=== PATIENT | female | born 2000 | race Caucasian/White ===

== ENCOUNTER 2024-03-24 22:38 | Emergency (ER) | payer MEDICAID, SELFPAY ==
[2024-03-24 22:39] VITALS: BP 133/80; PULSE 116; RESP 18; TEMP 36.2; O2SAT 98; BMI 31.8
--- NOTE | 2024-03-24 23:14 | ED.RN ---
Patient refusing IV and bloodwork.
--- NOTE | 2024-03-24 23:25 | ED.RN ---
Patient is declining all lab work but would still like to be seen. Dr. Munoz notified.
--- NOTE | 2024-03-24 23:55 | US_ITS ---
INDICATION: r/o ectopic EXAMINATION: Ultrasound US OB Transvaginal TECHNIQUE: Transvaginal pelvic ultrasound was performed. Grayscale, spectral waveform, and color flow Doppler evaluation of the adnexa. COMPARISON: None. LMP: [02/07/2024 correlating with 6 weeks 5 days gestation estimated delivery date 11/13/2024 Beta-hCG: Unknown FINDINGS: UTERUS: Retroverted uterus 8.7 x 6.1 x 6.5 cm with unremarkable myometrium RIGHT OVARY: 2.6 x 1.5 x 1.8 cm. Normal parenchymal appearance. Limited Doppler evaluation with demonstrated internal vascular flow. LEFT OVARY: 3.4 x 1.6 x 2.3 cm. 2.1 cm complex luteal cyst.. Preserved ovarian Doppler vascular flow. FREE FLUID: None. INTRAUTERINE GESTATIONAL SAC(s) (size/shape): Single fundal gestational sac with normal shape. YOLK SAC: Single normal yolk sac POLE: Single pole with crown-rump length 0.46 centimeters correlating with 6 weeks 3 days gestation and estimated delivery date November 15, 2024 HEART MOTION: 99 bpm. PLACENTA: Not visualized due to age. SUBCHORIONIC HEMORRHAGE: None. AMNIOTIC FLUID: Qualitatively normal. US/Transvaginal w/Preg US IMPRESSION: Single live intrauterine with normal heart rate. Estimated gestational age is concordant with provided dating. Normal ovaries with left luteal cyst. Electronically Signed: Ravindra Nunez MD at 1:22 EDT ,
--- NOTE | 2024-03-25 00:13 | ED.VIS.FEGU ---
HPI HPI - Female History of Present Illness Chief Complaint: Vag Bld, Preg Informant: patient Pain Pain: Positive for Pelvic Pain (Off-and-on for days or weeks) Timing: Intermittent Quality: Positive for Cramping Location: - (Throughout pelvis nonlateralizing) Current Severity: Mild Bleeding Issue: Positive for Vaginal bleeding Onset: Today Context: Gradual Onset Current Severity: Mild Maximum Severity: Heavy Associated Symptoms Last known menstrual period: 02/07/24 Test: Positive Narrative Narrative: Patient states she is and was having some pelvic pain off-and-on, she had ultrasounds done hormone levels at her OB in [place] nothing has been seen, today she had a lot of bleeding. She feels okay right now. She has Rh- blood and already had a dose of RhoGAM within the last week or 2. PFSH PFSH Medical History no medical history no medical history Home Medications ?Medication ?Instructions ?Recorded ?Last Taken ?Type NK 03/24/24 Unknown History Allergy/AdvReac Type Severity Reaction Status Date / Time amphetamine (From Adderall) AdvReac Nausea/Vom/ Verified 03/24/24 22:40 Diarrhea dextroamphetamine (From AdvReac Nausea/Vom/ Verified 03/24/24 22:40 Adderall) Diarrhea Surgical History no surgical history Social History Smoking Status: Never smoker ROS ROS ED Constitutional Constitutional ED: Denies chills or fever(s) Eyes Eyes: Denies change in vision or diplopia ENT ENT ED: Denies rhinorrhea or sore throat Cardiovascular Cardiovascular: Denies chest pain, palpitations or syncope Respiratory/Chest Respiratory/Chest: Denies cough or dyspnea Gastrointestinal Gastrointestinal: Reports abdominal pain; Denies diarrhea, nausea or vomiting Genitourinary Genitourinary ED: Reports vaginal bleeding; Denies dysuria or hematuria Psychiatric Psychiatric: Denies anxiety or suicidal thoughts EXAM Physical Exam Const Vital Signs: 03/24/24 22:39 03/25/24 00:39 Temperature 97.2 F L Temperature Source Temporal Pulse Rate 116 H 89 Respiratory Rate 18 18 Blood Pressure 133/80 H 96/58 L Blood Pressure Mean 97 70 Pulse Ox 98 99 Positive well nourished and well developed General Appearance ED: well developed and NAD HEENT Reports moist mucous membranes normocephalic and atraumatic Eyes PERRL and EOMs intact bilaterally Neck full ROM and supple Resp normal respiratory effort Cardio regular rate, regular rhythm and no murmurs GI non-distended GI Narrative: Mild diffuse pelvic tenderness without guarding or rebound. Auscultation: normoactive bowel sounds Palpation: soft Speculum Exam - Vagina: vaginal bleeding Neuro oriented x3, CN's II-XII intact bilaterally and no sensory deficits noted Sensorium / Orientation: awake and alert Motor Exam: strength 5/5 throughout Skin no rashes or lesions noted and no wounds MDM MDM MDM Narrative Medical decision making narrative: Patient recently had RhoGAM does not need another dose now. She is stable clinically and hemodynamically. She states she is refusing blood work. I did a bedside ultrasound, I see no intrauterine or double decidual sign, and as I discussed with her the differential includes ectopic , early intrauterine that is too small to see, or completed miscarriage. She would need a quantitative hCG now and another one in 48 hours to differentiate these. She was amenable to nurses trying again. This was done and noted, quantitative hCG 22,000 460, I do not have records of what her other ones were, but the ultrasound, images are reviewed as well as the report which I agree with, is consistent with a 6-week 3-day gestation with due date 11/15/2024 with heart tones here noted as 99. Unknown if this is accurate or not, but appears to be a single live intrauterine at least this rules out an ectopic . Patient reassured, she is clinically and hemodynamically stable and doing well and stable for discharge to follow-up with OB routinely. Lab Data Attestation: I reviewed the patient's lab results. Labs: Laboratory Results - last 24 hr 03/24/24 23:39 HCG, Quant [id number] H Discharge Plan Triage Chief Complaint: Vag Bld, Preg ED Provider: Dakota Munoz Dx/Rx/DC Orders Clinical Impression: , threatened, antepartum Instructions: Miscarriage Threatened Prescriptions: No Action NK Primary Care Provider: David Austin Referrals: David Austin, [Primary Care Provider] - (Follow-up with your OB in the next 1 or 2 weeks, soon as you are able) Activity Restrictions/Additional Instructions: You have an intrauterine that is measuring 6 weeks and 3 days right now for an estimated due date of 11/15/2024. This may change and is just an estimate right now. You do not need to follow-up for repeat hormone level since we were able to verify that you have an intrauterine and not an ectopic which is good. Follow-up when you are able. Print Language: Citizen Of [place] Disposition Disposition: Home, Self Care
[2024-03-25 00:39] VITALS: BP 96/58; PULSE 89; RESP 18; O2SAT 99
[2024-03-25 00:49] LABS: hCG Titer Quant., Serum 22460 mIU/mL (1-3)
[2024-03-25 02:00] VITALS: BP 118/61; PULSE 71; RESP 16; RESP 18; TEMP 36.2; O2SAT 99
== END 2024-03-25 02:05 | disposition home or self-care (01) ==
PROVIDERS: Emergency Provider Emergency Medicine; PCP Family Medicine; Visit Provider Emergency Medicine
DX: O20.0 Threatened abortion (principal); R10.2 Pelvic and perineal pain; Z3A.01 Less than 8 weeks gestation of pregnancy
CPT/HCPCS: 76817; 84702; 99282; A4216

== ENCOUNTER 2024-03-25 19:41 | Emergency (ER) | payer MEDICAID, SELFPAY ==
[2024-03-25 19:42] VITALS: BP 163/143; PULSE 84; RESP 18; TEMP 36.1; O2SAT 100; BMI 33.4
--- NOTE | 2024-03-25 20:33 | EDS_ITS ---
HPI HPI - Female History of Present Illness Chief Complaint: Vag Bld, Preg Informant: patient Pain Pain: Positive for Pelvic Pain Onset: Today and Yesterday Context: Gradual Onset Timing: Intermittent Quality: Positive for Cramping Current Severity: Mild Maximum Severity: Mild Bleeding Issue: Positive for Vaginal bleeding; Negative for Passing clots or Passing tissue Onset: Today and Yesterday Timing: Intermittent Current Severity: Spotting Maximum Severity: Spotting Associated Symptoms Associated Symptoms: Negative for Dysuria or Frequency Test: Positive Sexually: Positive for Active P: 2 Ab: 0 Narrative Narrative: 24-year-old female G3, P2 Ab0. Currently is almost 7 weeks . She knows her blood type is A-. She sees an [facility] at [place] named Dr. Monge. Patient did have vaginal bleeding and mild cramping yesterday. The cramping and bleeding is actually slowed today. She was seen in this emergency department yesterday. She had an ultrasound showing single live IUP. No ectopic. She had a quant of 22,000, 460. She has had no fever. She has already received RhoGAM a full dose in the last 2 weeks. Prior similar symptoms: Yes Recent Illness/Hospitalization: No PFSH PFSH Medical History TIA (transient ischemic attack) Medical History no medical history Home Medications ?Medication ?Instructions ?Recorded ?Last Taken ?Type NK 03/24/24 Unknown History Allergy/AdvReac Type Severity Reaction Status Date / Time amphetamine (From Adderall) AdvReac Nausea/Vom/ Verified 03/25/24 19:44 Diarrhea dextroamphetamine (From AdvReac Nausea/Vom/ Verified 03/25/24 19:44 Adderall) Diarrhea Social History Smoking Status: Never smoker ROS ROS ED ROS Narrative Vaginal bleeding cramping. Review of Systems ROS Unobtainable: Denies due to encephalopathy Constitutional Constitutional ED: Denies anorexia Eyes Eyes: Denies burning ENT ENT ED: Denies disequillibrium Cardiovascular Cardiovascular: Denies cyanosis Respiratory/Chest Respiratory/Chest: Denies cough Gastrointestinal Gastrointestinal: Reports none Genitourinary Genitourinary ED: Reports none Musculoskeletal Musculoskeletal: Reports none Integumentary Reports none Neurologic Neurologic: Reports none Psychiatric Psychiatric: Reports none Endocrine Endocrinology: Reports none Hematologic/Lymphatic Hematologic/Lymphatic: Reports none Allergic/Immunologic Allergic/Immunologic ED: Reports none EXAM Physical Exam Narrative Exam Narrative: Well-appearing 24-year-old female. Vital signs stable initial blood pressure 163/143. There is probably an error. Will be rechecked prior to discharge. HEENT exam unremarkable. Lungs clear. Heart regular rhythm rate about 80. Abdomen soft, nontender, nondistended normal bowel sounds no peritoneal signs. Moving all 4 extremities. Nontender no edema. She is awake and alert. No focal motor deficits. Benign exam. Const Vital Signs: 03/25/24 19:42 Temperature 96.9 F L Temperature Source Temporal Pulse Rate 84 Respiratory Rate 18 Blood Pressure 163/143 H Blood Pressure Mean 149 Pulse Ox 100 Oxygen Delivery Method Room Air Positive well nourished, well developed, no apparent distress, average body habitus, no limitations and healthy appearing; Negative for obese, cachectic, contractures or unkempt General Appearance ED: cooperative, comfortable, well kempt and well developed; Negative for unkempt, cachectic or contractures Nutritional Appearance: Negative for cachectic or obese HEENT Reports normocephalic and head/scalp atraumatic normocephalic Face and Sinus: normal facial exam Nose: external nose normal Eyes PERRL, EOMs intact bilaterally, conjunctivae normal and no scleral icterus General Eye ED: Yes normal appearance of both eyes Neck full ROM, No nuchal rigidity, no lymphadenopathy, supple, no meningeal signs and no JVD Lymph Lymphatic: no lymphadenopathy noted and no lymphedema noted Chest Wall inspection of chest normal Resp normal respiratory effort, normal air movement, no retractions, no use of accessory muscles and clear to auscultation bilaterally Cardio regular rate, regular rhythm, S1 normal heart sound, S2 normal heart sound, no murmurs, no rub, no gallops, no clicks and no JVD Rate: regular rate Rhythm: regular rhythm GI normal to inspection, nondistended, normoactive bowel sounds, soft to palpation, non-tender, non-distended, no masses and no bruits Palpation: soft; Negative for firm, tender, guarding or rebound tenderness present no CVA tenderness Back/Spine no CVA tenderness Extremity normal to inspection, no joint enlargement, no clubbing, cyanosis or edema, no calf tenderness and no pedal edema General Extremety ED: Yes normal exam except as noted General Extremity: normal exam except as noted Neuro oriented x3, CN's II-XII intact bilaterally, moves all extremities and no focal motor deficits Motor Exam: strength 5/5 throughout Psych mental status grossly normal, thought process normal, cooperative, affect normal and speech normal Appearance: grossly normal; Negative for unkempt Attitude: calm, engaged, No paranoid, No withdrawn and No bizarre Activity / Motor Behavior: appropriate eye contact Speech: normal speech Mood & Affect: euthymic mood Thought Process: normal thought process Thought Content: normal thought content Skin no rashes or lesions noted, no wounds, skin turgor normal, no jaundice, no petec hiae and no mottling General Skin Exam: no breakdown Lesions: no lesions Rashes: no rashes Trauma: no lacerations or abrasions MDM MDM MDM Narrative Medical decision making narrative: 24-year-old female G3, P2 Ab0. Approximately 6 to 7 weeks . Was seen here last night. A quant of 22,000. Her blood type is A- which she is already received RhoGAM in the last 2 weeks. Ultrasound last night showed a single live IUP. She was diagnosed with threatened miscarriage. Her bleeding and cramping is actually much improved. She and I went over the test that she had last night and she does not need them repeated tonight. I did offer her a repeat ultrasound but explained to her that it may not show any different from yesterday. She is comfortable with follow-up with her [facility] and get an ultrasound done there. We went over threatened miscarriage versus vaginal bleeding in early . She will use Tylenol for pain. No intercourse. No lifting. [facility] follow-up. History & Record Review Discussion w/independent historian: Patient Additional record(s) reviewed:: Prior inpatient record, Prior outpatient record, Prior ED visit and Prior labs Discharge Plan Triage Chief Complaint: Vag Bld, Preg ED Provider: Alan Leon Dx/Rx/DC Orders Clinical Impression: Miscarriage, threatened, early Instructions: Miscarriage Threatened Prescriptions: No Action NK Primary Care Provider: David Austin Referrals: David Austin, [Primary Care Provider] - As soon as possible Activity Restrictions/Additional Instructions: Plenty of fluids and rest. Tylenol for any pain. Call and follow-up with your OB tomorrow deceiving get you in Saturday or no later than Saturday. No heavy lifting. No intercourse. Return if fever, increasing pain or heavy bleeding with large clots. Currently this is a threatened miscarriage. You may go on to have a totally normal . The concern would be that you could develop completed miscarriage and lose the . Print Language: Malaysian Disposition Disposition: Home, Self Care
[2024-03-25 20:50] VITALS: BP 129/77; PULSE 78; RESP 16; TEMP 36.8; O2SAT 100
== END 2024-03-25 20:51 | disposition home or self-care (01) ==
LOC: ED 20:38
PROVIDERS: Emergency Provider Emergency Medicine; PCP Family Medicine; Visit Provider Emergency Medicine
DX: O20.0 Threatened abortion (principal); O26.891 Other specified pregnancy related conditions, first trimester; R10.2 Pelvic and perineal pain; Z3A.01 Less than 8 weeks gestation of pregnancy
CPT/HCPCS: 99282

== ENCOUNTER 2024-08-26 22:21 | Emergency (ER) | payer MEDICAID, SELFPAY ==
[2024-08-26 22:22] VITALS: BP 121/73; PULSE 101; RESP 20; TEMP 36.2; O2SAT 100; BMI 34.2
--- NOTE | 2024-08-26 22:33 | EX.ED.DYSGE1 ---
HPI History of Present Illness Chief Complaint: Sore Throat [facility] Medical History TIA (transient ischemic attack) Medical History no medical history Home Medications ?Medication ?Instructions ?Recorded ?Last Taken ?Type amoxicillin 875 mg-potassium 1 tab PO BID #14 tabs 08/26/24 Unknown Rx clavulanate 125 mg tablet Allergy/AdvReac Type Severity Reaction Status Date / Time amphetamine (From Adderall) AdvReac Nausea/Vom/ Verified 08/26/24 22:21 Diarrhea dextroamphetamine (From AdvReac Nausea/Vom/ Verified 08/26/24 22:21 Adderall) Diarrhea Social History Smoking Status: Never smoker EXAM Physical Exam Const Vital Signs: 08/26/24 22:22 Temperature 97.1 F L Temperature Source Temporal Pulse Rate 101 H Respiratory Rate 20 H Blood Pressure 121/73 H Blood Pressure Mean 89 Pulse Ox 100 Oxygen Delivery Method Room Air [facility] Narrative Medical decision making narrative: HISTORY OF PRESENT ILLNESS: Patient presents with sore throat. Notes 2 days of symptoms. No severe throat pain. Notes difficulty swallowing. Denies difficulty opening her mouth, trismus drooling fever. No sick contacts. REVIEW OF SYSTEMS: Pertinent positives: Sore throat Pertinent negatives: Drooling, neck stiffness, shortness of breath, chest pain, vomiting PHYSICAL EXAM: Nursing triage notes reviewed, Vital signs reviewed Constitutional: please see mdm HENT: MMM, there is some tonsillar edema, uvula midline, there are tonsillar exudates, no submandibular edema or induration, bilateral TMs pearly [place]mond with no hyperemia or middle ear effusion, no mastoid tenderness, no trismus, Eyes: Pupils equal round and reactive to light, Extraocular muscles intact Neck: No stridor, no JVD, full neck ROM Lungs: Clear to auscultation, No wheezing or rales. No increased work of breathing, no conversational dyspnea, no accessory muscle use, no nasal flaring. No respiratory distress noted. The patient speaking full sentences. Heart: Regular rate and rhythm, No murmurs, No rubs and No gallops, 2+ distal pulses (radial, femoral, posterior tibial) in all extremities Skin: No rash or lesions noted MEDICAL DECISION MAKING: Chief Complaint: Sore throat External records reviewed: None Factors affecting care: None Social determinants of health: None History obtained from others: None Consults: None ALL IMAGES (IF OBTAINED) HAVE BEEN PERSONALLY REVIEWED AND INTERPRETED BY MYSELF. MDM Narrative: The patient was hemodynamically stable, afebrile, nontoxic-appearing. She is speaking in full sentences. There is no signs of airway compromise at this time. I considered the following differential diagnosis: Bacterial versus viral pharyngitis, RPA, [employer], Lemierre's syndrome, Robi's angina. There is no clinical evidence of RPA, [employer], Lemierre's syndrome along with and at this time. Patient will be given prophylactic antibiotics. Also gave anti-inflammatories and for Toradol and Decadron for symptomatic relief. The patient was given strict return precautions and follow-up instructions. The patient and/or family, caregivers express understanding. The patient and/or family, caregivers agrees with the plan. Total critical care time today provided was at least 0 minutes. This excludes separately billable procedures. Critical care time if documented is secondary to the patient having high probability of clinically significant/life threatening deterioration in the patient's condition which required my urgent intervention. Shared decision making: I will have a discussion with the patient and or visitors regarding risk/benefits of further testing or admission. They will be made aware of of the risk/benefits inherent in this decision they will be given the opportunity to voice understanding. Impression: 1. Bacterial pharyngitis 2. Acute sore throat Disposition: Discharge home This note was generated with [employer] dictation software. It may contain incorrect words, spelling, and punctuation that were not noted in review of the chart prior to signing. Discharge Plan Triage Chief Complaint: Sore Throat ED Provider: Alex Neil Dx/Rx/DC Orders Instructions: Strep Throat Prescriptions: New amoxicillin-pot clavulanate 875-125 mg tablet 1 tab PO BID Qty: 14 0RF Primary Care Provider: David Austin Referrals: David Austin DO [Primary Care Provider] - Activity Restrictions/Additional Instructions: Thank you for trusting us with your care today! Your clinical exam is consistent with bacterial pharyngitis (bacterial infection of your throat) Please take Tylenol (2 pills, 650 mg), ibuprofen (2 pills, 400 mg) every 6 hours as needed for pain and fever control. Please take antibiotics until course complete. Please return to the emergency department if your symptoms change or worsen. Specifically develop swelling underneath your jaw, drooling, difficulty opening your jaw, severe throat tightness, loud in-store noises that we call stridor. Please follow with your primary care physician for further outpatient evaluation and management. Print Language: Turkmen Disposition Disposition: Home, Self Care Discharge Date/Time: 08/26/24 23:36
[2024-08-26] MEDS: dexAMETHasone 10 MG/ML Vial 6 MG IM (23:00)
[2024-08-26] MEDS: Amox/Clavulanate 875 MG Tablet PO (23:00)
[2024-08-26] MEDS: Ketorolac 15 MG/ML Vial IV (23:00)
== END 2024-08-26 23:36 | disposition home or self-care (01) ==
PROVIDERS: Emergency Provider Emergency Medicine; PCP Family Medicine; Visit Provider Emergency Medicine
DX: J02.9 Acute pharyngitis, unspecified (principal)
CPT/HCPCS: 96372; 96374; 99282

== ENCOUNTER 2025-01-19 09:38 | Emergency (ER) | payer MEDICAID, SELFPAY ==
[2025-01-19 09:38] VITALS: BP 134/93; BP 141/76; PULSE 110; PULSE 114; RESP 24; RESP 26; TEMP 37.2; O2SAT 97; O2SAT 98; BMI 38.0
--- NOTE | 2025-01-19 09:45 | EDS_ITS ---
HPI History of Present Illness Chief Complaint: Sore Throat [facility] Medical History TIA (transient ischemic attack) Medical History no medical history Home Medications ?Medication ?Instructions ?Recorded ?Last Taken ?Type amoxicillin 875 mg-potassium 1 tab PO BID #14 tabs Unknown Rx clavulanate 125 mg tablet Allergy/AdvReac Type Severity Reaction Status Date / Time amphetamine (From Adderall) AdvReac Nausea/Vom/ Verified 08/26/24 22:21 Diarrhea dextroamphetamine (From AdvReac Nausea/Vom/ Verified 08/26/24 22:21 Adderall) Diarrhea Social History Smoking Status: Never smoker EXAM Physical Exam Const Vital Signs: 01/19/25 09:38 01/19/25 09:38 Temperature 99 F Temperature Source Temporal Pulse Rate 110 H 114 H Respiratory Rate 24 H 26 H Blood Pressure 134/93 H 141/76 H Blood Pressure Mean 106 97 Pulse Ox 98 97 Oxygen Delivery Method Room Air Room Air Discharge Plan Triage Chief Complaint: Sore Throat ED Provider: Provider,Ed Physician Dx/Rx/DC Orders Prescriptions: No Action amoxicillin-pot clavulanate 875-125 mg tablet 1 tab PO BID Qty: 14 0RF Primary Care Provider: David Austin Referrals: David Austin DO [Primary Care Provider] - Print Language: [place] Island[place]
--- NOTE | 2025-01-19 09:48 | EX.ED.VIS.UR ---
HPI HPI - URI History of Present Illness Chief Complaint: Sore Throat Informant: patient Onset/Context/Timing Onset: Days (2) Context: Gradual Onset Timing: Continuous Quality: Sharp Location: Throat Worsened by: Swallowing, Eating Solids and Drinking Liquids Relieved by: NSAIDs (Ibuprofen) Associated Symptoms Associated Symptoms: Negative for Nasal Congestion, Headache, Sinus Pressure, Myalgias, Nausea, Vomiting, Diarrhea, Shortness of Breath, Chest Pain, Nonproductive cough, Hemoptysis or Productive Cough Narrative Narrative: Patient presents with sore throat that has been getting worse over the past 2 days. Patient states it has gradually gotten worse. Patient states she slept with her mouth open 2 nights ago and woke up with pain in her throat. Patient states she has been taking ibuprofen which has been helping. Patient describes her pain as sharp and swollen. Patient states that her pain is worse with swallowing, eating, and drinking. Patient denies any fevers or chills. Patient denies any cough. Patient denies any chest pain or shortness of breath. ROS ROS ED Constitutional Constitutional ED: Denies chills or fever(s) Eyes Eyes: Denies blurry vision or change in vision ENT ENT ED: Reports sore throat; Denies rhinorrhea Cardiovascular Cardiovascular: Denies chest pain or palpitations Respiratory/Chest Respiratory/Chest: Denies cough or dyspnea Gastrointestinal Gastrointestinal: Denies nausea or vomiting Genitourinary Genitourinary ED: Denies dysuria or hematuria Musculoskeletal Musculoskeletal: Denies back pain or neck pain Integumentary Denies abscess or rash Neurologic Neurologic: Denies headache(s) or weakness Allergic/Immunologic Allergic/Immunologic ED: Denies mouth swelling or urticaria [facility] Medical History (Updated 01/19/25 @ 12:[address] Tal Koch, DO) Sore throat TIA (transient ischemic attack) Home Medications ?Medication ?Instructions ?Recorded ?Last Taken ?Type amoxicillin 875 mg-potassium 1 tab PO BID #20 tabs 01/19/25 Unknown Rx clavulanate 125 mg tablet dexamethasone 6 mg tablet 6 mg PO DAILY #7 tabs 01/19/25 Unknown Rx Allergy/AdvReac Type Severity Reaction Status Date / Time amphetamine (From Adderall) AdvReac Nausea/Vom/ Verified 08/26/24 22:21 Diarrhea dextroamphetamine (From AdvReac Nausea/Vom/ Verified 08/26/24 22:21 Adderall) Diarrhea Surgical History no surgical history no surgical history Social History (Updated 01/19/25 @ 09:[address] Tal Koch, DO) Smoking Status: Never smoker Electronic Cigarette Use: with nicotine EXAM Physical Exam Const Vital Signs: 01/19/25 09:38 01/19/25 09:38 01/19/25 12:30 Temperature 99 F 98 F Temperature Source Temporal Pulse Rate 110 H 114 H 92 Respiratory Rate 24 H 26 H 18 Blood Pressure 134/93 H 141/76 H 132/69 H Blood Pressure Mean 106 97 90 Pulse Ox 98 97 98 Oxygen Delivery Method Room Air Room Air Positive well nourished and well developed General Appearance ED: well developed and NAD HEENT Reports moist mucous membranes normocephalic and atraumatic Throat: tonsils abnormal bilateral hypertrophy and posterior oropharynx abnormal Positive for edema and erythema Neck supple, no meningeal signs and no JVD General: lymphadenopathy anterior cervical tender; Negative for anterior neck swelling Resp normal respiratory effort and clear to auscultation bilaterally Cardio Rate: regular rate Rhythm: regular rhythm GI non-tender and non-distended Palpation: soft Neuro oriented x3, CN's II-XII intact bilaterally and no sensory deficits noted Sensorium / Orientation: alert Motor Exam: strength 5/5 throughout Psych mental status grossly normal MDM MDM MDM Narrative Medical decision making narrative: Differential diagnosis includes peritonsillar abscess, retropharyngeal abscess, epiglottitis, strep pharyngitis, and viral upper respiratory infection. CBC will be obtained to assess for leukocytosis and anemia. Basic metabolic profile will be obtained to assess for electrolyte abnormality renal function. CT scan of the soft tissue neck will be obtained to assess for parapharyngeal abscess. Rapid strep will be obtained to assess for strep pharyngitis. COVID-19, influenza, and RSV PCR will be obtained to assess for viral upper respiratory infection. Lab Data Attestation: I reviewed the patient's lab results. Lab results narrative: CBC was reviewed. There is a leukocytosis of 21.7. There is a mild anemia with a hemoglobin of 11.8 and hematocrit 35.4. Platelets were normal. Basic metabolic profile was reviewed and was essentially within normal limits. Labs: Laboratory Results - last 24 hr 01/19/25 10:16 WBC 21.7 H RBC 4.52 Hgb 11.8 L Hct 35.4 L MCV 78.3 L MCH 26.1 L MCHC 33.3 RDW Std Deviation 38.4 RDW Coeff of Tim 13.5 Plt Count 435 MPV 9.6 Immature Gran % (Auto) 0.600 Neut % (Auto) 82.8 H Lymph % (Auto) 8.0 L Bonner % (Auto) 6.4 Eos % (Auto) 1.8 Baso % (Auto) 0.4 Absolute Neuts (auto) 18.0 H Absolute Lymphs (auto) 1.73 Nucleated RBC % 0 Sodium 138 Potassium 4.3 Chloride 105 Carbon Dioxide 19.3 L Anion Gap 13 BUN 8 Creatinine 0.73 Estim Creat Clear Calc 127.23 Est GFR (MDRD) Non-Af 118 BUN/Creatinine Ratio 11.2 Glucose 94 Calcium 9.2 Radiography Diagnostic Testing: Clinical Impression(s) from Imaging Studies Soft Tissue Neck CT 01/19/25 10:40 IMPRESSION: Diffuse enlargement of both palatine tonsils with narrowing of the airway with heterogeneous enhancement suggestive of phlegmon. No drainable abscess is seen at this time. One or more dose reduction techniques were used (e.g., Automated exposure control, adjustment of the mA and/or kV according to patient size, use of iterative reconstruction technique). Reading Location: [facility] CT scan of the soft tissue neck was obtained. There is diffuse enlargement of both palatine tonsils with heterogeneous enhancement suggestive of phlegmon. There is no abscess noted. This was interpreted by the radiologist and was also independently reviewed by myself. Treatment and Re-Evaluation Narrative: Patient was given IV fluids, Toradol, Decadron, and Unasyn. Patient was advised of her findings. Patient is feeling better on reevaluation. Patient was given prescriptions for Augmentin and Decadron. Patient was instructed to follow-up with her primary care physician in 3 to 5 days. Patient was instructed to return if worse in any way. Patient understood and was agreeable with the plan. All questions were answered. Discharge Plan Triage Chief Complaint: Sore Throat ED Provider: Tal Koch Dx/Rx/DC Orders Clinical Impression: Acute tonsillitis, Acute streptococcal pharyngitis Instructions: ED Pharyngitis, Strep (Confirmed), ED Tonsillitis Prescriptions: New dexamethasone 6 mg tablet 6 mg PO DAILY Qty: 7 0RF Continued amoxicillin-pot clavulanate 875-125 mg tablet 1 tab PO BID Qty: 20 0RF Primary Care Provider: David Austin Referrals: David Austin DO [Primary Care Provider] - 3-5 Days Print Language: Slovak Disposition Disposition: Home, Self Care Discharge Date/Time: 01/19/25 12:31
[2025-01-19] MEDS: 0.9% Normal Saline (1000mL) 1,000 ML 1000 ML IV (10:18)
[2025-01-19] MEDS: Ampicillin/Sulbactam 3 GM in 0.9% Normal Saline (100mL MB+) 100 ML IV (10:18)
[2025-01-19] MEDS: Ketorolac 30 MG/ML Syringe IV (10:19)
[2025-01-19] MEDS: dexAMETHasone 10 MG/ML Vial IV (10:19)
[2025-01-19 10:33] LABS: Absolute Lymphocyte Count 1.73 X10^3/uL (0.83-4.51); Basophil# 0.08 X10^3/uL; Basophil% 0.4 % (0-1); Eosinophils% 1.8 % (0-5); Hematocrit 35.4 % (37-47); Hemoglobin 11.8 g/dL (12.0-15.0); Lymphocyte # 1.73 X10^3/ul (0.83-4.51); Mean Corp Hgb Conc 33.3 g/dL (32-36); Mean Corpuscular Hgb 26.1 pg (27.0-32.0); Mean Corpuscular Volume 78.3 fL (81-99); Mean Platelet Vol. 9.6 fl (6.2-12.0); Monocyte# 1.39 X10^3/uL; Monocyte% 6.4 % (0-10); NRBC Flagged by Analyzer 0 % (0-5); Neutrophil # 17.96 X10^3/uL (2.7-7.7); Neutrophil % 82.8 % (47-70); Platelet Count 435 K/mm3 (150-450); RBC Distribution Width CV 13.5 % (11.6-14.6); RBC Distribution Width SD 38.4 fl (35.1-43.9); Red Blood Count 4.52 M/mm3 (4.2-5.4); White Blood Count 21.7 K/mm3 (4.4-11.0)
--- NOTE | 2025-01-19 10:40 | CT_ITS ---
PROCEDURE: SOFT TISSUE NECK WITH CONTRAST REASON FOR EXAM: THROAT SWELLING TECHNIQUE: CT of the soft tissues of the neck from the orbits to the upper mediastinum with intravenous contrast. CONTRAST: COMPARISON: None. FINDINGS: There is diffuse enlargement of both palatine tonsils with the heterogeneous enhancement bilaterally. No definite abscess is seen at this time. This is suggestive of phlegmon. Airway: Narrowing of the airway due to the hypertrophy of the tonsils. Salivary glands: Unremarkable. Lymph nodes: No cervical lymphadenopathy. Thyroid: Unremarkable. Vasculature: Carotid arteries and internal jugular veins are unremarkable. Orbits: Unremarkable at visualized levels. Paranasal sinuses and mastoids: Grossly clear at visualized levels. Lung apices: Clear. Upper mediastinum: Visualized mediastinum is unremarkable. Bones: Unremarkable. CT/Soft Tissue Neck WITH Contrast IMPRESSION: Diffuse enlargement of both palatine tonsils with narrowing of the airway with heterogeneous enhancement suggestive of phlegmon. No drainable abscess is seen at this time. One or more dose reduction techniques were used (e.g., Automated exposure contr ol, adjustment of the mA and/or kV according to patient size, use of iterative reconstruction technique). Reading Location: [place] [id number]
[2025-01-19 10:42] LABS: Anion Gap 13 (5-15); BUN 8 mg/dL (4-19); BUN/Creat Ratio 11.2 RATIO (10-20); Calcium,Total 9.2 mg/dL (7.6-11.0); Carbon Dioxide 19.3 mmol/L (21.0-32.0); Chloride 105 mmol/L (98-108); Creatinine, Serum 0.73 mg/dL (0.70-1.20); EST Glomerular Filtration Rate 118 (>60); Estimated Creatinine Clearance 127.23 ml/min (50-250); Glucose 94 mg/dL (70-99); Potassium 4.3 mmol/L (3.3-5.1); Sodium Level 138 mmol/L (133-145)
[2025-01-19 12:30] VITALS: BP 132/69; PULSE 92; RESP 18; TEMP 36.6; O2SAT 98
== END 2025-01-19 12:31 | disposition home or self-care (01) ==
PROVIDERS: Emergency Provider Emergency Medicine; PCP Family Medicine; Visit Provider Emergency Medicine
DX: J03.00 Acute streptococcal tonsillitis, unspecified (principal); Z11.52 Encounter for screening for COVID-19; F17.290 Nicotine dependence, other tobacco product, uncomplicated
CPT/HCPCS: 70491; 80048; 85025; 87631; 87651; 96365; 96375; 99283; Q9967; J0295